=== PATIENT | male | born 1965 | race Caucasian/White ===

== ENCOUNTER 2019-05-22 17:40 | Emergency (ER) | payer BC ==
[~2019-05-22] VITALS: Ht 182.9 cm; Wt 154.5 kg
[~2019-05-22 17:40] MED LIST: LISINOPRIL; LOPRESSOR 225 MG/TAB PO; NO HOME MEDICATIONS; PRILOSEC 20MG20 MG PO; TENORMIN25 MG PO; TOPROL XL 50MG50 MG PO
[2019-05-22 17:54] LABS: BASO # 0.1 (0.0-0.2); BASO % 0.4 % (0.0-2.0); EOS # 0.4 (0.0-0.7); GRAN # 7.7 (1.4-6.5); HEMATOCRIT 43.9 % (42.0-52.0); HEMOGLOBIN 14.9 g/dl (13.5-18.0); LYMPH % 24.8 % (20.0-51.0); MEAN CELL VOLUME 91 fl (80.0-100.0); MEAN CORPUSCULAR HEMOGLOBIN 31 pg (27.0-31.0); MEAN CORPUSCULAR HGB CONC 34 g/dl (33.0-37.0); MEAN PLATELET VOLUME 10.1 fl (7.4-10.4); MONO % 8.4 % (1.7-9.3); PLATELET COUNT 276 K/mm3 (130-400); RED BLOOD COUNT 4.85 M/mm3 (4.20-5.60); REDCELL DISTRIBUTION WIDTH-CV 12.8 % (11.5-14.5)
[2019-05-22 18:00] LABS: ALBUMIN 4.6 gm/dL (3.5-5.0); BILIRUBIN,TOTAL 0.5 mg/dL (0.0-1.0); CALCIUM 9.4 mg/dL (8.4-10.2); CREATININE, serum 0.93 (0.66-1.25); POTASSIUM 3.8 mmol/L (3.4-5.0)
[2019-05-22] MEDS ORDERED: TENORMIN 2525 MG/TAB PO (18:59)
[2019-05-22 19:23] VITALS: BP 109/69; PULSE 100; TEMP 98.2
== END 2019-05-22 19:22 | disposition home or self-care (01) ==
LOC: COL.ER 17:40
PROVIDERS: Emergency Medicine
DX: I47.1 Supraventricular tachycardia (principal); K21.9 Gastro-esophageal reflux disease without esophagitis; Z88.1 Allergy status to other antibiotic agents
CPT/HCPCS: J0153; J7030

== ENCOUNTER → 2019-06-24 | Outpatient (CLI) | payer BC ==
[~2019-06-24] MED LIST changes: +TENORMIN 2525 MG/TAB PO
== END ==
LOC: COL.VAS 05-28 13:15
DX: I47.1 Supraventricular tachycardia (principal); I51.7 Cardiomegaly; I34.0 Nonrheumatic mitral (valve) insufficiency

== ENCOUNTER 2021-11-17 10:03 | Inpatient (IN) | payer BC ==
[~2021-11-17] VITALS: Ht 182.9 cm; Wt 168.0 kg
[2021-11-17 10:49] LABS: BASO # 0.1 K/mm3 (0.0-0.2); BASO % 0.5 % (0.0-2.0); EOS # 0.8 K/mm3 (0.0-0.7); EOS % 6.9 % (0.0-4.0); GRAN # 7.8 K/mm3 (1.4-6.5); HEMATOCRIT 43.4 % (42.0-52.0); HEMOGLOBIN 14.7 g/dl (13.5-18.0); LYMPH # 2.5 K/mm3 (1.2-3.4); LYMPH % 20.7 % (20.0-51.0); MEAN CELL VOLUME 93 fl (80.0-100.0); MEAN CORPUSCULAR HEMOGLOBIN 31 pg (27-31); MEAN CORPUSCULAR HGB CONC 34 g/dl (33.0-37.0); MEAN PLATELET VOLUME 9.8 fl (7.4-10.4); MONO # 0.7 K/mm3 (0.1-0.6); MONO % 6.2 % (1.7-9.3); PLATELET COUNT 254 K/mm3 (130-400); RED BLOOD COUNT 4.68 M/mm3 (4.20-5.60); REDCELL DISTRIBUTION WIDTH-CV 13.3 % (11.5-14.5)
[2021-11-17 11:07] LABS: ALANINE AMINOTRANSFERASE 71 U/L (0-55); ALBUMIN 3.9 gm/dL (3.5-5.0); ALKALINE PHOSPHATASE 41 U/L (40-150); ANION GAP 11 mmol/L (7-16); AST,SGOT 36 U/L (5-34); BILIRUBIN,TOTAL 0.6 mg/dL (0.2-1.2); BLOOD UREA NITROGEN 19 mg/dL (8-26); CALCIUM 9.2 mg/dL (8.4-10.2); CARBON DIOXIDE 30 mmol/L (22-29); CHLORIDE 103 mmol/L (98-107); CREATININE, serum 0.86 mg/dL (0.72-1.25); GLUCOSE 95 mg/dL (70-99); POTASSIUM 3.8 mmol/L (3.5-4.5); SODIUM 144 mmol/L (136-145); TOTAL PROTEIN 7.3 gm/dL (6.2-8.1)
[2021-11-17 11:30] LABS: TROPONIN-I < 0.010 ng/mL (0.00-0.033)
[2021-11-17] MEDS ORDERED: TOPROL XL100 MG PO (14:47)
[2021-11-17] MEDS ORDERED: ZITHROMAX 250M250 MG PO (14:49)
[2021-11-17 16:15] VITALS: BP 142/75; PULSE 78; TEMP 98.7
[2021-11-17] MEDS ORDERED: PROVENTIL0.09 MG/A1 IH (16:36)
[2021-11-17] MEDS ORDERED: MOBIC15 MG PO (16:36)
[2021-11-17] MEDS ORDERED: MUCINEX DM 60 M1 TER PO (16:38)
--- NOTE | 2021-11-17 17:50 | NUR ---
PATIENT WAS ADMITTED TO THE THE UNIT IN THE AFTER NOON, DUE TO COMPLAINS OF WHEEZING, PT ON o2 2LTS VIA N.C SATURATING AT 93. SOB WITH ACTIVITY. HAS A IV. 18G ON THE LEFT HAND,INDEPENDENT ON ADL,ON TLE , FULL CODE. ALL SCHEDULED MEDICATION GIVEN NO ADVERSE EFFECTS NOTED
[2021-11-17 19:14] VITALS: BP 129/66; PULSE 101; TEMP 98.9
--- NOTE | 2021-11-17 20:50 | NUR ---
Patient is sitting in the chair, alert and oriented x 4, VSS, denes pain or SOB. Right now with 2 L O2 NC. Assessment complted, meds provided, no other need at this time. Call sander zaidi.
[2021-11-17 23:06] VITALS: BP 120/65; PULSE 53; TEMP 98.8
[2021-11-18 03:30] VITALS: BP 104/31; PULSE 50; PULSE 57; TEMP 97.1
--- NOTE | 2021-11-18 06:05 | NUR ---
Patient has had a calm night. He used his bipap at night and saturating 94%. HR AND BP soft. No symptoms. Report will be given to day RN.
[2021-11-18 08:05] VITALS: BP 122/62; PULSE 88; TEMP 98
[2021-11-18 08:21] LABS: HEMATOCRIT 42.1 % (42.0-52.0); HEMOGLOBIN 14.6 g/dl (13.5-18.0); MEAN CELL VOLUME 92 fl (80.0-100.0); MEAN CORPUSCULAR HEMOGLOBIN 32 pg (27-31); MEAN CORPUSCULAR HGB CONC 35 g/dl (33.0-37.0); MEAN PLATELET VOLUME 10.2 fl (7.4-10.4); PLATELET COUNT 268 K/mm3 (130-400); RED BLOOD COUNT 4.58 M/mm3 (4.20-5.60); REDCELL DISTRIBUTION WIDTH-CV 13.2 % (11.5-14.5)
[2021-11-18 08:34] LABS: ALBUMIN 3.9 gm/dL (3.5-5.0); BILIRUBIN,TOTAL 0.7 mg/dL (0.2-1.2); CALCIUM 9.6 mg/dL (8.4-10.2); CREATININE, serum 0.91 mg/dL (0.72-1.25); POTASSIUM 4.2 mmol/L (3.5-4.5); TOTAL PROTEIN 7.3 gm/dL (6.2-8.1)
[2021-11-18 09:01] LABS: BAND 2 % (0-10); LYMPHOCYTE 7 % (20.0-51.0); NEUTROPHILS 90 % (42.0-75.2)
[2021-11-18 09:02] LABS: HYPOCHROMIA 1+; PLATELET ESTIMATE NORMAL (NORMAL)
--- NOTE | 2021-11-18 12:06 | NUR ---
PATIENT INDEPENDENT IN ROOM, SHOWERED WITH NO STAFF ASSISTANCE. WALKED HALLS WITH THERAPY. STILL ON 2L OF O2 NC. WILL ATTEMPT TO TITRATE. SPUTUM SAMPLE OBTAINED AND SENT TO LAB. NO COMPLAINTS OF PAIN. PATIENT HAD BM THIS AM AFTER THERAPY.
[2021-11-18 13:11] VITALS: BP 147/71; PULSE 73; TEMP 97.7
--- NOTE | 2021-11-18 13:30 | NUR ---
SW met with patient to complete intake. Patient stated that he lives with Vicky [phone]. Patient states that he does not utilize any DME, independent with ADL's, and does not utilize any home health services. PCP is Dr. Villa, and pharmacy is [facility]. is appointed as DPOA/HC. Patient states that his plan is to return to his home upon DC. SW will continue to follow. DC plan: home
[2021-11-18 17:39] VITALS: BP 117/52; PULSE 67; TEMP 97.6
--- NOTE | 2021-11-18 18:34 | NUR ---
Report recieved from LILA Mukherjee. VSS. Patient A&O. Patient currently requiring 2L via nasal cannula. Patient denies any pain, discomfort, SOA, or further needs at this time. Call light in reach.
[2021-11-18 20:00] VITALS: BP 150/75; PULSE 76; TEMP 97.9
[2021-11-18 20:10] VITALS: BP 128/75; PULSE 71
--- NOTE | 2021-11-18 22:21 | NUR ---
TAPERING PATIENT OFF OF OXYGENATION. 02 @ 1L VIA NC. PATIENT NOT HAVING ANY DIFFICULTY AMBULATING TO BATHROOM PATIENT ALSO STATED THAT HE FEELS MUCH BETTER FAR BREATHING AND HOPE TO GO HOME TOMORROW. PATIENT CONTINUES ON PO ABX THERAPY. ENCOURAGING DEEP BREATHING EXERCISES AND AMBUALTION. PATIENT INDEPENDT IN ROOM. CALL LIGHT WITHIN REACH WILL CONTINUE TO MONITOR.
[2021-11-19 00:11] VITALS: BP 107/59; PULSE 52; TEMP 97.8
[2021-11-19 04:40] VITALS: BP 107/59; PULSE 52; TEMP 97.7
--- NOTE | 2021-11-19 05:09 | NUR ---
PATIENT WEARING BI-PAP THROUGHOUT SHIFT, TOLERATING WELL. NO C/O PAIN OR DISCOMFORT SLEPT THROUGHOUT SHIFT. NO CHANGES NOTED. CONTINUING TO TAPER PATIENT OFF OF OXYGENATION. 02 1 L VIA NC. WILL CONTINUE TO MONITOR.
[2021-11-19 05:55] LABS: BASO % 0.1 % (0.0-2.0); EOS % 0.1 % (0.0-4.0); GRAN # 12.8 K/mm3 (1.4-6.5); HEMATOCRIT 41.2 % (42.0-52.0); LYMPH # 0.7 K/mm3 (1.2-3.4); MEAN CELL VOLUME 92 fl (80.0-100.0); MEAN CORPUSCULAR HEMOGLOBIN 31 pg (27-31); MEAN CORPUSCULAR HGB CONC 34 g/dl (33.0-37.0); MEAN PLATELET VOLUME 10.4 fl (7.4-10.4); MONO # 0.7 K/mm3 (0.1-0.6); MONO % 4.9 % (1.7-9.3); PLATELET COUNT 265 K/mm3 (130-400); RED BLOOD COUNT 4.46 M/mm3 (4.20-5.60); REDCELL DISTRIBUTION WIDTH-CV 13.2 % (11.5-14.5)
[2021-11-19 06:19] LABS: CALCIUM 9.4 mg/dL (8.4-10.2); CREATININE, serum 0.81 mg/dL (0.72-1.25); POTASSIUM 4.6 mmol/L (3.5-4.5)
[2021-11-19 08:00] VITALS: BP 112/61; PULSE 66; TEMP 97.7
[2021-11-19] MEDS ORDERED: PROTONIX 40MG T40 MG PO (09:40)
[2021-11-19] MEDS ORDERED: MONODOX100 PO (09:41)
[2021-11-19] MEDS ORDERED: MEDROL 4MG DOSPA4 MG PO (09:44)
[2021-11-19 11:09] VITALS: BP 121/57; PULSE 64; TEMP 97.5
--- NOTE | 2021-11-19 11:28 | NUR ---
Scheduled medications given. Shift assessment preformed. Patient currenly on RA. Denies any pain, discomfort, SOA, or further needs at this time. VSS. Patient A&O. Patient deemed fit for discharge. IV DC'd, catheter intact, no signs of phlebitis. One dose of abx and protonix given for home. Pharmacy approved. Patient ambulated from building, escorted by [facility] Staff. Patient transporting self home.
== END 2021-11-19 11:30 | disposition home or self-care (01) | DRG 189 ==
LOC: COL.ER 10:03 → MEDICAL 14:06
PROVIDERS: Emergency Medicine; Physician Assistant; ADMIT Internal Medicine
DX: J96.01 Acute respiratory failure with hypoxia (principal); Z68.42 Body mass index [BMI] 45.0-49.9, adult; G47.33 Obstructive sleep apnea (adult) (pediatric); K21.9 Gastro-esophageal reflux disease without esophagitis; E66.01 Morbid (severe) obesity due to excess calories; J06.9 Acute upper respiratory infection, unspecified; D72.829 Elevated white blood cell count, unspecified; T38.0X5A Adverse effect of glucocorticoids and synthetic analogues, initial encounter; I10 Essential (primary) hypertension; Z20.822 Contact with and (suspected) exposure to COVID-19; Z99.81 Dependence on supplemental oxygen; Z88.1 Allergy status to other antibiotic agents; Z88.0 Allergy status to penicillin; Z88.2 Allergy status to sulfonamides; Z23 Encounter for immunization
CPT/HCPCS: 99223-AI; 99232-AI; 99239; J1650; J2920; J2930; Q9967

== ENCOUNTER 2021-12-01 19:17 | Observation (INO) | payer BC ==
[~2021-12-01] VITALS: Ht 182.9 cm; Wt 161.6 kg
[~2021-12-01 19:17] MED LIST changes: +MEDROL 4MG DOSPA4 MG PO; +MOBIC15 MG PO; +MONODOX100 PO; +MUCINEX DM 60 M1 TER PO; +PROTONIX 40MG T40 MG PO; +PROVENTIL0.09 MG/A1 IH; +TOPROL XL100 MG PO; +ZITHROMAX 250M250 MG PO
[2021-12-01 20:08] LABS: BASO % 0.4 % (0.0-2.0); EOS # 0.6 K/mm3 (0.0-0.7); EOS % 6.1 % (0.0-4.0); GRAN # 6.8 K/mm3 (1.4-6.5); GRAN % 72.4 % (42.2-75.2); HEMATOCRIT 40.4 % (42.0-52.0); HEMOGLOBIN 13.7 g/dl (13.5-18.0); LYMPH # 1.4 K/mm3 (1.2-3.4); LYMPH % 14.8 % (20.0-51.0); MEAN CELL VOLUME 92 fl (80.0-100.0); MEAN CORPUSCULAR HEMOGLOBIN 31 pg (27-31); MEAN CORPUSCULAR HGB CONC 34 g/dl (33.0-37.0); MEAN PLATELET VOLUME 10.9 fl (7.4-10.4); MONO # 0.6 K/mm3 (0.1-0.6); MONO % 6.1 % (1.7-9.3); PLATELET COUNT 180 K/mm3 (130-400); RED BLOOD COUNT 4.38 M/mm3 (4.20-5.60); REDCELL DISTRIBUTION WIDTH-CV 12.9 % (11.5-14.5)
[2021-12-01 20:26] LABS: ALBUMIN 3.7 gm/dL (3.5-5.0); BILIRUBIN,TOTAL 0.6 mg/dL (0.2-1.2); CREATININE, serum 0.95 mg/dL (0.72-1.25); POTASSIUM 4.5 mmol/L (3.5-4.5); TOTAL PROTEIN 7.5 gm/dL (6.2-8.1)
[2021-12-02] VITALS (7 sets, daily range): BP systolic 121–151; BP diastolic 58–80; PULSE 55–103; TEMP 97.6–98
[2021-12-02] MEDS ORDERED: IPRATROPIUM BROM3 M1 IH (02:13)
[2021-12-02] MEDS ORDERED: PROTONIX 40MG T40 MG PO (02:13)
[2021-12-02] MEDS ORDERED: MOBIC15 MG PO (02:13)
[2021-12-02] MEDS ORDERED: TOPROL XL100 MG PO (02:14)
[2021-12-02] MEDS ORDERED: MUCINEX D 12001 TER PO (02:15)
--- NOTE | 2021-12-02 05:30 | NUR ---
PT ARRIVED TO THE MEDICAL FLOOR AT 0030HRS. PT A&O X 4; VSS; O2 RA. PT DENIED GENERAL PAIN, CHEST PAIN, PALPITATIONS, SOB, N,V,D OR DIZZINESS. ADMISSIONS ASSESSMENT AND MED REC COMPLETE. PT ORIENTED TO ROOM AND HOSPITAL POLICY. POC DISCUSSED WITH PT. PT VERBALIZED UNDERSTANDING. ALL QUESTIONS AND CONCERNS ADDRESSED. PT EXPRESSED NO ADDITIONAL NEEDS AT THIS TIME. CALL LIGHT WITHIN REACH.
[2021-12-02 07:33] LABS: HEMATOCRIT 39.3 % (42.0-52.0); HEMOGLOBIN 13.3 g/dl (13.5-18.0); MEAN CELL VOLUME 94 fl (80.0-100.0); MEAN CORPUSCULAR HEMOGLOBIN 32 pg (27-31); MEAN CORPUSCULAR HGB CONC 34 g/dl (33.0-37.0); MEAN PLATELET VOLUME 10.8 fl (7.4-10.4); PLATELET COUNT 185 K/mm3 (130-400); RED BLOOD COUNT 4.18 M/mm3 (4.20-5.60); REDCELL DISTRIBUTION WIDTH-CV 12.7 % (11.5-14.5)
[2021-12-02 07:52] LABS: CALCIUM 9.2 mg/dL (8.4-10.2); CREATININE, serum 0.79 mg/dL (0.72-1.25); POTASSIUM 4.1 mmol/L (3.5-4.5)
--- NOTE | 2021-12-02 07:54 | NUR ---
PT AWAKE IN ROOM AT THIS TIME. BREAKFAST HAS BEEN DELIVERED. THERE IS AN OUTSTANDING SPUTUM AND RVP. THOSE HAVE BEEN COLLECTED AND TAKEN TO LAB. NO OTHER CONCERNS AT THIS TIME.
[2021-12-02 07:55] LABS: BAND 1 % (0-10); LYMPHOCYTE 3 % (20.0-51.0); NEUTROPHILS 96 % (42.0-75.2); PLATELET ESTIMATE NORMAL (NORMAL)
[2021-12-02] MEDS ORDERED: PROVENTIL0.09 MG/A1 IH (11:16)
--- NOTE | 2021-12-02 14:11 | NUR ---
SW met with the pt to complete intake. Pt lives at home with his , Ranjit [phone]. His daughter is currently at home helping him and his . He was just DC from [facility] rehab on 11/25. Pt reports he is independent on all ADLs, but does use a motorize scooter, walker and cane. Pt reports his PCP is [facility] and gets his medications from [facility]. Pt reports he has DPOA-HC and does not need paperwork. PT is monitoring him. DC: Rehab vs home
--- NOTE | 2021-12-02 14:18 | NUR ---
Brad met with the pt to complete intake. Pt lives at home with his , Vicky ( present) [phone]. Pt reports he is independent on all ADLs and does use a CPAP, nebulizer. PCP is Dr. Villa and gets medications from [facility]. Pt reports no DPAO-HC and is not interested at this time. DC: Home with .
--- NOTE | 2021-12-02 19:00 | NUR ---
THE PATIENT HAD UNEVENTFUL DAY. SOLUMEDROL WAS CHANGED TO PO PREDNISONE. PATIENT DENIES ANY SHORTNESS OF BREATH. DOES HAVE SOME WHEEZING IN THE UPPER LOBES BILATERALLY AND SOME IN THE LEFT LOWER LOBE. DENIES ANY OTHER PROBLEMS. NO OTHER CONCERNS. REPORT WAS GIVEN TO LILA VALDEZ.
[2021-12-03 04:34] VITALS: BP 112/63; PULSE 77; TEMP 97.9
--- NOTE | 2021-12-03 06:57 | NUR ---
on RA, CPAP during the noc, slept well, independent in room. LAC INT patent/secure.
--- NOTE | 2021-12-03 07:29 | NUR ---
INCENTIVE SPIROMETERY WAS ORDERED, HOWEVER THERE IS NOT INCETIVE SPIROMETER IN THE ROOM. RESPIRATORY AWARE.
[2021-12-03 08:00] VITALS: BP 120/57; PULSE 83; TEMP 97.8
[2021-12-03 12:13] VITALS: BP 121/57; PULSE 85; TEMP 97.9
--- NOTE | 2021-12-03 12:21 | NUR ---
PT DENIES ANY COMPLAINTS AT THIS TIME. IS READY TO GO HOME, WAITING FOR DOCTOR TO ROUND AND DISCHARGE THIS PATIENT. NO OTHER CONCERNS.
[2021-12-03] MEDS ORDERED: PREDNISONE10 MG PO (13:46)
[2021-12-03] MEDS ORDERED: BREO ELLIPTA 21 EACH IH (13:47)
[2021-12-03] MEDS ORDERED: SPIRIVA RE2.5 MCG/Ac IH (13:48)
--- NOTE | 2021-12-03 15:11 | NUR ---
DISCHARGE EDUCATION COMPLETED. PATIENT VERBALIZED UNDERSTANDING. AWAITING RIDE HOME. NO CONCERNS.
== END 2021-12-03 15:21 | disposition home or self-care (01) ==
LOC: COL.ER 19:17 → MEDICAL 22:43
PROVIDERS: Family Medicine; Nurse Practitioner Family; ADMIT Internal Medicine
DX: J96.01 Acute respiratory failure with hypoxia (principal); G47.33 Obstructive sleep apnea (adult) (pediatric); I47.1 Supraventricular tachycardia; I10 Essential (primary) hypertension; K21.9 Gastro-esophageal reflux disease without esophagitis; E66.01 Morbid (severe) obesity due to excess calories; Z68.42 Body mass index [BMI] 45.0-49.9, adult; R79.89 Other specified abnormal findings of blood chemistry; Z20.822 Contact with and (suspected) exposure to COVID-19; D72.10 Eosinophilia, unspecified; Z79.899 Other long term (current) drug therapy
CPT/HCPCS: 99232-AI; A9284; G0378; J0456; J1650; J2920; J2930; J7050; J7512

== ENCOUNTER 2021-12-18 16:10 | Emergency (ER) | payer BC ==
[~2021-12-18] VITALS: Ht 182.9 cm; Wt 165.9 kg
[~2021-12-18 16:10] MED LIST changes: +BREO ELLIPTA 21 EACH IH; +IPRATROPIUM BROM3 M1 IH; +MUCINEX D 12001 TER PO; +PREDNISONE10 MG PO; +SPIRIVA RE2.5 MCG/Ac IH
[2021-12-18 16:28] VITALS: TEMP 97.1
[2021-12-18 16:42] LABS: BASO # 0.1 K/mm3 (0.0-0.2); BASO % 0.6 % (0.0-2.0); EOS # 0.2 K/mm3 (0.0-0.7); EOS % 2.1 % (0.0-4.0); GRAN # 5.5 K/mm3 (1.4-6.5); GRAN % 60.2 % (42.2-75.2); HEMATOCRIT 45.4 % (42.0-52.0); HEMOGLOBIN 15.6 g/dl (13.5-18.0); LYMPH # 2.5 K/mm3 (1.2-3.4); LYMPH % 27.5 % (20.0-51.0); MEAN CELL VOLUME 92 fl (80.0-100.0); MEAN CORPUSCULAR HEMOGLOBIN 32 pg (27-31); MEAN CORPUSCULAR HGB CONC 34 g/dl (33.0-37.0); MEAN PLATELET VOLUME 10.2 fl (7.4-10.4); MONO # 0.8 K/mm3 (0.1-0.6); MONO % 9.2 % (1.7-9.3); PLATELET COUNT 189 K/mm3 (130-400); RED BLOOD COUNT 4.96 M/mm3 (4.20-5.60); REDCELL DISTRIBUTION WIDTH-CV 13.2 % (11.5-14.5)
[2021-12-18 16:58] LABS: ALBUMIN 3.9 gm/dL (3.5-5.0); CALCIUM 9.6 mg/dL (8.4-10.2); CREATININE, serum 1.17 mg/dL (0.72-1.25); PHOSPHOROUS 3.7 mg/dL (2.3-4.7); POTASSIUM 4.1 mmol/L (3.5-4.5)
[2021-12-18 17:48] VITALS: BP 118/71; PULSE 85
== END 2021-12-18 17:48 | disposition home or self-care (01) ==
LOC: COL.ER 16:10
PROVIDERS: Emergency Medicine
DX: I47.1 Supraventricular tachycardia (principal); I10 Essential (primary) hypertension
CPT/HCPCS: J0153; J7030

== ENCOUNTER 2022-01-18 02:03 | Emergency (ER) | payer BC ==
[~2022-01-18] VITALS: Ht 182.9 cm; Wt 165.9 kg
[2022-01-18 02:17] VITALS: TEMP 97.2
[2022-01-18 02:33] LABS: BASO % 0.5 % (0.0-2.0); EOS # 0.3 K/mm3 (0.0-0.7); EOS % 3.2 % (0.0-4.0); GRAN # 4.8 K/mm3 (1.4-6.5); GRAN % 57.9 % (42.2-75.2); HEMATOCRIT 40.2 % (42.0-52.0); HEMOGLOBIN 13.9 g/dl (13.5-18.0); LYMPH # 2.3 K/mm3 (1.2-3.4); LYMPH % 27.9 % (20.0-51.0); MEAN CELL VOLUME 91 fl (80.0-100.0); MEAN CORPUSCULAR HEMOGLOBIN 32 pg (27-31); MEAN CORPUSCULAR HGB CONC 35 g/dl (33.0-37.0); MEAN PLATELET VOLUME 9.5 fl (7.4-10.4); MONO # 0.8 K/mm3 (0.1-0.6); MONO % 9.8 % (1.7-9.3); PLATELET COUNT 293 K/mm3 (130-400); RED BLOOD COUNT 4.41 M/mm3 (4.20-5.60); REDCELL DISTRIBUTION WIDTH-CV 13.2 % (11.5-14.5)
[2022-01-18 02:47] LABS: ALANINE AMINOTRANSFERASE 95 U/L (0-55); ALBUMIN 3.5 gm/dL (3.5-5.0); ALKALINE PHOSPHATASE 44 U/L (40-150); ANION GAP 14 mmol/L (7-16); AST,SGOT 57 U/L (5-34); BILIRUBIN,TOTAL 0.5 mg/dL (0.2-1.2); BLOOD UREA NITROGEN 14 mg/dL (8-26); CALCIUM 9.1 mg/dL (8.4-10.2); CARBON DIOXIDE 21 mmol/L (22-29); CHLORIDE 107 mmol/L (98-107); CREATININE, serum 1.24 mg/dL (0.72-1.25); GLUCOSE 141 mg/dL (70-99); POTASSIUM 3.9 mmol/L (3.5-4.5); SODIUM 142 mmol/L (136-145); TOTAL PROTEIN 7.1 gm/dL (6.2-8.1)
[2022-01-18 02:55] LABS: TROPONIN-I < 0.010 ng/mL (0.00-0.033)
[2022-01-18] MEDS ORDERED: TAMBOCOR50 MG PO (03:26)
[2022-01-18 03:35] VITALS: BP 127/68; PULSE 100
== END 2022-01-18 03:35 | disposition home or self-care (01) ==
LOC: COL.ER 02:03
PROVIDERS: Nurse Practitioner
DX: I47.1 Supraventricular tachycardia (principal)
CPT/HCPCS: J0153; J7030

== ENCOUNTER → 2022-01-26 | Outpatient (CLI) | payer BC ==
[~2022-01-26] MED LIST changes: +TAMBOCOR50 MG PO
== END ==
LOC: COL.PUL 10:25
DX: R06.02 Shortness of breath (principal)

== ENCOUNTER → 2022-02-21 | Outpatient (CLI) | payer BC | LOC: COL.PUL 02-09 10:00 | DX: R06.02 Shortness of breath (principal) | CPT/HCPCS: J7674 ==

== ENCOUNTER 2022-09-05 21:55 | Inpatient (IN) | payer BC ==
[~2022-09-05] VITALS: Ht 182.9 cm; Wt 159.1 kg
[2022-09-05 22:48] LABS: BASO # 0.1 K/mm3 (0.0-0.2); BASO % 0.5 % (0.0-2.0); EOS # 0.7 K/mm3 (0.0-0.7); GRAN # 7.8 K/mm3 (1.4-6.5); GRAN % 67.9 % (42.2-75.2); HEMATOCRIT 41.8 % (42.0-52.0); HEMOGLOBIN 14.9 g/dl (13.5-18.0); LYMPH # 2.1 K/mm3 (1.2-3.4); LYMPH % 18.6 % (20.0-51.0); MEAN CELL VOLUME 91 fl (80.0-100.0); MEAN CORPUSCULAR HEMOGLOBIN 33 pg (27-31); MEAN CORPUSCULAR HGB CONC 36 g/dl (33.0-37.0); MEAN PLATELET VOLUME 10.1 fl (7.4-10.4); MONO # 0.7 K/mm3 (0.1-0.6); MONO % 6.5 % (1.7-9.3); PLATELET COUNT 257 K/mm3 (130-400); RED BLOOD COUNT 4.58 M/mm3 (4.20-5.60); REDCELL DISTRIBUTION WIDTH-CV 13.2 % (11.5-14.5)
[2022-09-05 23:02] LABS: ALANINE AMINOTRANSFERASE 34 U/L (0-55); ALKALINE PHOSPHATASE 44 U/L (40-150); ANION GAP 12 mmol/L (7-16); AST,SGOT 20 U/L (5-34); BILIRUBIN,TOTAL 0.6 mg/dL (0.2-1.2); BLOOD UREA NITROGEN 12 mg/dL (8-26); CALCIUM 9.4 mg/dL (8.4-10.2); CARBON DIOXIDE 26 mmol/L (22-29); CHLORIDE 105 mmol/L (98-107); CREATININE, serum 0.87 mg/dL (0.72-1.25); GLUCOSE 95 mg/dL (70-99); POTASSIUM 3.9 mmol/L (3.5-4.5); SODIUM 143 mmol/L (136-145); TOTAL PROTEIN 7.4 gm/dL (6.2-8.1)
[2022-09-05 23:09] LABS: TROPONIN-I < 0.010 ng/mL (0.00-0.033)
[2022-09-06] MEDS ORDERED: PRILOSEC 20MG20 MG PO (00:49)
[2022-09-06] MEDS ORDERED: PRINIVIL20 MG PO (00:49)
[2022-09-06] MEDS ORDERED: TRELEGY ELLIPT1 EACH IH (00:51)
[2022-09-06] MEDS ORDERED: NIZORAL SHAMPO120 M1 TP (01:32)
[2022-09-06] MEDS ORDERED: MOUNJARO5 MG/0.5 M SQ (01:34)
[2022-09-06 03:00] VITALS: BP 127/70; PULSE 113; TEMP 98.1
--- NOTE | 2022-09-06 03:06 | NUR ---
PT ARRIVED TO ROOM RECENTLY. PT HAS HOME CPAP SET UP ON BEDSIDE TABLE. NO DISTRESS NOTED. BREATH SOUNDS IMPROVED WITH TREATMENT. EXP WHEEZES HEARD BEFORE AND AFTER TX, BUT PT WAS MOVING MORE AIR AFTERWARDS. NO COMPLICATIONS OR CONCERNS. NO VOICED COMPLAINTS. STATES HE HAS BEEN TAKING TREATMENTS THE LAST FEW DAYS BUT HASNT SINCE ABOUT A YEAR AGO WHEN HE PRESENTED WITH SIMILAR SYMPTOMS. CHECKED PT SPECIFIC BIN IN NURSING MED ROOM, AND PTS AM ANORO WAS NOT IN THE BIN. PT ACHIEVED 2500 ON IS MACHINE FIRST TRY. PERFORMED WITH GOOD EFFFORT.
--- NOTE | 2022-09-06 03:10 | NUR ---
PT ARRIVED TO FLOOR IN ROOM 308 AROUND 0230 VITAL SIGNS TAKEN AND ADMISSION AND ASSESSMENT COMPLETED AT THIS TIME
[2022-09-06 06:33] LABS: HEMATOCRIT 38.9 % (42.0-52.0); HEMOGLOBIN 13.2 g/dl (13.5-18.0); MEAN CELL VOLUME 94 fl (80.0-100.0); MEAN CORPUSCULAR HEMOGLOBIN 32 pg (27-31); MEAN CORPUSCULAR HGB CONC 34 g/dl (33.0-37.0); MEAN PLATELET VOLUME 10.7 fl (7.4-10.4); PLATELET COUNT 232 K/mm3 (130-400); RED BLOOD COUNT 4.14 M/mm3 (4.20-5.60); REDCELL DISTRIBUTION WIDTH-CV 13.3 % (11.5-14.5)
[2022-09-06 06:37] LABS: CREATININE, serum 1.28 mg/dL (0.72-1.25)
[2022-09-06 07:00] LABS: BAND 4 % (0-10); LYMPHOCYTE 4 % (20.0-51.0); NEUTROPHILS 91 % (42.0-75.2); PLATELET ESTIMATE NORMAL (NORMAL)
[2022-09-06 07:30] VITALS: BP 97/46; PULSE 102; TEMP 97.6
--- NOTE | 2022-09-06 08:57 | NUR ---
SW met with the patient to discuss discharge plan. The patient lives in [place] with his , Vicky (ph#[phone]). He reports independence with ADLs and does not have any assistive devices for ambulation. He has a CPAP. The patient's PCP is Dr. Yoli Villa. The patient does not have a DPOA-HC and he was ont interested in completinge one at this time. The patient plans to return home with his upon discharge. He is currently requiring oxygen and he confirms he does not have home oxygen. *Discharge plan: home with *
--- NOTE | 2022-09-06 09:19 | NUR ---
Initial visit; Patient using telephone though waved when Coal Unloader opened his door. Coal Unloader offered God's blessings and showed her badge.
[2022-09-06 11:22] VITALS: BP 112/57; PULSE 91; TEMP 97.8
[2022-09-06 15:16] VITALS: BP 125/49; PULSE 99; TEMP 98.9
--- NOTE | 2022-09-06 19:31 | NUR ---
PT SITTING AT EDGE OF BED. NO SIGNS OF DISTRESS NOTED. NO COMPLAINTS OR VOICED CONCERNS. PT PLACED BACK ON 1L NC AFTER SVN TREATMENTS X3. TOLERATED WELL NO COMPLICATIONS.CALL LIGHT IS WITHIN REACH
[2022-09-06 19:39] VITALS: BP 116/66; PULSE 97; TEMP 97.8
--- NOTE | 2022-09-06 20:24 | NUR ---
Patient assessed at this time, head to toe assessment done, see shift assessment, denies pain or SOA, denies further needs, call light and personal items within, will continue to monitor.
[2022-09-06 23:23] VITALS: BP 108/46; PULSE 107; TEMP 98.3
[2022-09-07 03:16] VITALS: BP 113/56; PULSE 87; TEMP 98.1
[2022-09-07 05:40] LABS: HEMATOCRIT 38.3 % (42.0-52.0); HEMOGLOBIN 13.5 g/dl (13.5-18.0); MEAN CELL VOLUME 91 fl (80.0-100.0); MEAN CORPUSCULAR HEMOGLOBIN 32 pg (27-31); MEAN CORPUSCULAR HGB CONC 35 g/dl (33.0-37.0); MEAN PLATELET VOLUME 10.4 fl (7.4-10.4); PLATELET COUNT 240 K/mm3 (130-400); RED BLOOD COUNT 4.22 M/mm3 (4.20-5.60); REDCELL DISTRIBUTION WIDTH-CV 13.2 % (11.5-14.5)
[2022-09-07 05:51] LABS: CALCIUM 9.5 mg/dL (8.4-10.2); CREATININE, serum 0.87 mg/dL (0.72-1.25); POTASSIUM 4.7 mmol/L (3.5-4.5)
[2022-09-07 07:05] LABS: BAND 2 % (0-10); LYMPHOCYTE 6 % (20.0-51.0); NEUTROPHILS 90 % (42.0-75.2); PLATELET ESTIMATE NORMAL (NORMAL)
[2022-09-07 07:31] VITALS: BP 113/74; PULSE 78; TEMP 97.8
--- NOTE | 2022-09-07 09:34 | NUR ---
Initial visit; Juan and his thanked Sql Data Analyst for stopping by and offering God's blessings this morning.
--- NOTE | 2022-09-07 09:37 | NUR ---
The PA notified SW that the patient is to tentatively discharge today. An exercise oximetry was ordered. RT notified SW that the patient did not qualify for oxygen. The patient is to discharge back home today, 09/07. No additional needs at this time.
[2022-09-07] MEDS ORDERED: MUCUS RELIEF400 M1 PO (09:40)
[2022-09-07] MEDS ORDERED: DOXYCYCLINE 10100 MG PO (09:40)
[2022-09-07] MEDS ORDERED: PREDNISONE20 MG PO (09:41)
--- NOTE | 2022-09-07 10:15 | NUR ---
PATIENT TAKEN TO PT ENTRANCE VIA WHEELCAHIR BY PCT WHERE HE LEFT IN STABLE CONDITION WITH HIS .
--- NOTE | 2022-09-07 10:25 | NUR ---
PATIENT GIVEN DISCHARGE INSTRUCTIONS AND EDUCAITON. PATIENTS IV AND TELE DISCONTINUED.
== END 2022-09-07 10:15 | disposition home or self-care (01) | DRG 189 ==
LOC: COL.ER 21:55 → MEDICAL 09-06 00:52
PROVIDERS: Emergency Medicine; Nurse Practitioner Family; Physician Assistant; ADMIT Internal Medicine
PROC: 5A09357 Assistance with Respiratory Ventilation, Less than 24 Consecutive Hours, Continuous Positive Airway Pressure (ICD-10-PCS; principal; 2022-09-06)
DX: J96.01 Acute respiratory failure with hypoxia (principal); Z68.42 Body mass index [BMI] 45.0-49.9, adult; G47.33 Obstructive sleep apnea (adult) (pediatric); K21.9 Gastro-esophageal reflux disease without esophagitis; E66.01 Morbid (severe) obesity due to excess calories; Z20.822 Contact with and (suspected) exposure to COVID-19; D72.829 Elevated white blood cell count, unspecified; I10 Essential (primary) hypertension; Z88.1 Allergy status to other antibiotic agents; Z88.0 Allergy status to penicillin; Z88.2 Allergy status to sulfonamides; Z88.8 Allergy status to other drugs, medicaments and biological substances; Z23 Encounter for immunization
CPT/HCPCS: A9284; J1650; J2920; J2930